=== PATIENT | male | born 1995 | race African-American/Black ===

== ENCOUNTER 2016-06-12 18:09 | Emergency (ER) | payer OTHER ==
[~2016-06-12] VITALS: Ht 177.8 cm; Wt 73.3 kg
[~2016-06-12 18:09] MED LIST: NOHOMEMEDS
[2016-06-12 21:47] VITALS: BP 134/65
== END 2016-06-12 21:48 | disposition home or self-care (01) ==
LOC: EXP 18:09 → EME 18:09 → EXP 21:48
PROC: 3E0T3BZ Introduction of Anesthetic Agent into Peripheral Nerves and Plexi, Percutaneous Approach (ICD-10-PCS; principal; 2016-06-12)
DX: S03.2XXA Dislocation of tooth, initial encounter (principal); W01.198A Fall on same level from slipping, tripping and stumbling with subsequent striking against other object, initial encounter
CPT/HCPCS: 99281; 99284